=== PATIENT | female | born 1985 | race Caucasian/White ===

== ENCOUNTER 2024-05-25 21:48 | Emergency (ER) | payer OTHER, SELFPAY ==
[2024-05-25 21:50] VITALS: BP 170/98; PULSE 83; RESP 17; TEMP 37.1; O2SAT 98; BMI 23.6
[2024-05-25 23:18] VITALS: BP 141/100
[2024-05-26] MEDS: 0.9% Normal Saline (1000mL) 1,000 ML 1000 ML IV (00:16)
[2024-05-26] MEDS: Ketorolac 15 MG/ML Vial IV (00:16)
--- NOTE | 2024-05-26 00:54 | EDS_ITS ---
HPI History of Present Illness Chief Complaint: Cold Sx Detail of Chief Complaint: Patient with viral-like symptoms started today. Informant: patient Onset/Context/Timing Onset: Today Context: Sudden Onset Timing: Continuous Quality: Headache, nausea vomiting x 2, aches, cough Location: Upper respiratory Current Severity: Mild Maximum Severity: Moderate Worsened by: Nothing Relieved by: Nothing Associated Symptoms Associated Symptoms: Bad bifrontal headache Narrative Narrative: Patient is a 38-year-old woman. She has history of migraine headaches. She started having mild congestion and sore throat cough. She reports bifrontal headache. She does complain of mild light sensitivity. Denies neck pain or neck stiffness. She has vomited twice. She endorses diarrhea. She has been around multiple people who have been ill. She is in the [employer]. Patient denies skin lesions. Patient states her blood pressure was elevated after maneuvers at the [employer]. They have been watching her blood pressure. She states her blood pressure has been 1 40-95. Prior similar symptoms: Yes Recent Illness/Hospitalization: No PFSH PFSH Medical History Migraine Allergy/AdvReac Type Severity Reaction Status Date / Time doxycycline AdvReac Upset Verified 05/25/24 23:19 Stomach ondansetron (From Zofran) AdvReac Upset Verified 05/25/24 21:50 Stomach Family History no significant family his Social History Smoking Status: Never smoker ROS ROS ED Constitutional Constitutional ED: Reports fever(s) and subjective; Denies chills or sweats Eyes Eyes: Denies blurry vision, change in vision or diplopia ENT ENT ED: Reports rhinorrhea and sore throat; Denies ear pain Cardiovascular Cardiovascular: Reports chest pain and other Details: Chest pain with breathing. ; Denies orthopnea, palpitations, paroxysmal nocturnal dyspnea or racing heartbeat Respiratory/Chest Respiratory/Chest: Reports cough and dyspnea; Denies dyspnea on exertion, ortho pnea, paroxysmal nocturnal dyspnea or sputum Gastrointestinal Gastrointestinal: Reports abdominal pain, nausea and vomiting; Denies constipation, diarrhea or melena Genitourinary Genitourinary ED: Denies dysuria, hematuria or urinary frequency Musculoskeletal Musculoskeletal: Denies arthralgias, back pain, myalgias or neck pain Integumentary Denies rash Neurologic Neurologic: Reports headache(s); Denies paresthesias or weakness Endocrine Endocrinology: Denies cold intolerance or heat intolerance Hematologic/Lymphatic Hematologic/Lymphatic: Reports systems reviewed and no addt'l complaints, except as documented EXAM Physical Exam Const Vital Signs: 05/25/24 21:50 05/25/24 23:18 Temperature 98.7 F Temperature Source Oral Pulse Rate 83 Respiratory Rate 17 Blood Pressure 170/98 H 141/100 H Blood Pressure Mean 122 113 Pulse Ox 98 Oxygen Delivery Method Room Air Positive well nourished and well developed General Appearance ED: well developed and pallor; Negative for cyanotic, diaphoretic or NAD HEENT Reports dry mucous membranes Negative for trauma Mouth ED: Yes dry mucous membranes Mouth: dry mucous membranes Eyes PERRL and EOMs intact bilaterally General Eye ED: Negative for pale conjunctiva or scleral icterus Neck no lymphadenopathy, supple and no JVD Chest Wall inspection of chest normal and palpation of chest normal Resp normal respiratory effort and clear to auscultation bilaterally Cardio regular rate, regular rhythm, S1 normal heart sound, S2 normal heart sound and no murmurs GI normal to inspection, nondistended, normoactive bowel sounds, non-tender, non- distended and no masses; Negative for hepatosplenomegaly Back/Spine no CVA tenderness Extremity normal to inspection General Extremety ED: Negative for edema or tenderness General Extremity: Negative for edema Neuro oriented x3, CN's II-XII intact bilaterally and no sensory deficits noted Neuro Narrative: There is no dysmetria. Sensorium / Orientation: alert Motor Exam: strength 5/5 throughout Psych mental status grossly normal Skin no rashes or lesions noted, no wounds and skin turgor normal General Skin Exam: pallor; Negative for elasticity normal or jaundice MDM MDM MDM Narrative Medical decision making narrative: Patient presents with flulike symptoms. 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 If positive she will require week off. To treat her headache Toradol and Zofran was ordered. The Toradol for the headache and Zofran for the nausea vomiting. She states she is allergic to Zofran when she is not allergic. She gets an upset stomach which is not an allergy. Patient insists she has an allergy. The Zofran was discontinued and she was given 5 mg of Reglan. Patient was reassessed at 0120. Her blood pressures improved to 133/95. Her headache is improved. She feels comfortable going home. Discharge Plan Triage Chief Complaint: Cold Sx ED Provider: Star Bray Dx/Rx/DC Orders Clinical Impression: Systemic viral illness, Elevated blood pressure reading with diagnosis of hypertension, Headache, History of migraine headaches Instructions: ED Viral Syndrome (Adult) Primary Care Provider: Yancy Georges,Out of Referrals: Yancy Georges,Out of [Primary Care Provider] - 1 Week if not improving Activity Restrictions/Additional Instructions: 1. You may be sick for another 7 to 10 days. 2. Take either ibuprofen or Tylenol for your aches and pains. 3. Drink plenty of fluids. Print Language: Faroese Disposition Disposition: Home, Self Care
[2024-05-26] MEDS: Metoclopramide 10 MG/2 ML Vial 5 MG IV (00:55)
[2024-05-26 01:49] VITALS: BP 124/81; PULSE 73; RESP 18; TEMP 37.1; O2SAT 98
== END 2024-05-26 01:50 | disposition home or self-care (01) ==
PROVIDERS: Emergency Provider Emergency Medicine; Visit Provider Emergency Medicine
DX: B34.9 Viral infection, unspecified (principal); I10 Essential (primary) hypertension
CPT/HCPCS: 87631; 96361; 96374; 96375; 99284; A4216; J2405

== ENCOUNTER 2024-06-01 19:40 | Emergency (ER) | payer OTHER, SELFPAY ==
[2024-06-01] VITALS (7 sets, daily range): BP systolic 128–169; BP diastolic 89–123; PULSE 52–89; RESP 13–18; TEMP 36.6; O2SAT 95–99; BMI 23.6
--- NOTE | 2024-06-01 19:47 | EKG12_ITS ---
Test Reason : CP/BP Blood Pressure : */* mmHG Vent. Rate : 61 BPM Atrial Rate : 61 BPM P-R Int : 126 ms QRS Dur : 92 ms QT Int : 394 ms P-R-T Axes : 57 -4 13 degrees QTcB Int : 396 ms Normal sinus rhythm Biatrial enlargement Incomplete right bundle branch block Abnormal ECG Confirmed by Antwan Ramos ([id number]), associate editor LILLIAN KAUFMAN ([id number]) on 06/03/2024 8:19:15 AM Referred By: Confirmed By: Antwan Ramos
--- NOTE | 2024-06-01 20:00 | RAD_ITS ---
PROCEDURE: Portable upright chest radiograph, one view REASON FOR EXAM: Chest pain TECHNIQUE: Single portable upright chest radiograph was obtained. COMPARISON: None. FINDINGS: The cardiomediastinal silhouette is within normal limits. Osseous structures are intact. Mild elevation right hemidiaphragm. No pneumothorax, focal airspace consolidation, or pleural effusion. RAD/Chest 1 View (Portable) IMPRESSION: No acute cardiopulmonary process is demonstrated. If there are persistent symp toms or clinical concern, short-term follow-up CT evaluation may be considered. Reading Location: [facility]
[2024-06-01 20:21] LABS: Absolute Lymphocyte Count 3.26 X10^3/uL (0.83-4.51); Absolute Neutrophil Count 5.4 X10^3/uL (2.0-7.7); Basophil# 0.06 X10^3/uL; Basophil% 0.6 % (0-1); Eosinophil# 0.11 X10^3/uL; Eosinophils% 1.1 % (0-5); Hemoglobin 15.7 g/dL (12.0-15.0); Lymphocyte # 3.26 X10^3/ul (0.83-4.51); Lymphocyte % 33.9 % (19-41); Mean Corp Hgb Conc 33.4 g/dL (32-36); Mean Corpuscular Hgb 28.9 pg (27.0-32.0); Mean Corpuscular Volume 86.6 fL (81-99); Mean Platelet Vol. 9.8 fl (6.2-12.0); Monocyte# 0.81 X10^3/uL; Monocyte% 8.4 % (0-10); NRBC Flagged by Analyzer 0 % (0-5); Neutrophil # 5.35 X10^3/uL (2.7-7.7); Neutrophil % 55.7 % (47-70); Platelet Count 344 K/mm3 (150-450); RBC Distribution Width CV 12.6 % (11.6-14.6); RBC Distribution Width SD 39.8 fl (35.1-43.9); Red Blood Count 5.43 M/mm3 (4.2-5.4); White Blood Count 9.6 K/mm3 (4.4-11.0)
[2024-06-01 20:31] LABS: Anion Gap 6 (5-15); BUN 11 mg/dL (7-18); BUN/Creat Ratio 13.1 RATIO (10-20); Calcium,Total 9.6 mg/dL (8.5-10.1); Chloride 104 mmol/L (98-107); Creatinine, Serum 0.84 mg/dL (0.55-1.02); EST Glomerular Filtration Rate 80 mL/min (>60); Est Glom Filt Rate - Afr Amer 97 mL/min (>60); Estimated Creatinine Clearance 80.91 ml/min; Glucose 95 mg/dL (74-106); Potassium 3.8 mmol/L (3.5-5.1); Sodium Level 139 mmol/L (136-145); Troponin-I HS (w/2H Reflex) 3 pg/mL (3.0-54.0)
--- NOTE | 2024-06-01 21:14 | EX.ED.DYSGE1 ---
HPI <JOSE Ho - Last Filed: 06/01/24 22:00> History of Present Illness Chief Complaint: Chest Pain Narrative Narrative: Patient is a 38-year-old female with history of migraine headaches who presents to the [facility] for coughing, shortness of breath intermittent chest pain. Patient was seen here 7 days ago, this was more for a viral-like etiology. Patient is currently doing a lot of physical activity secondary to training for the [employer]. Patient states over the last couple days, she has not been doing well, she states that her blood pressure has been elevated, he is also having some shortness of breath and chest pain whenever she is running. Because the patient symptoms, she needs to be evaluated. <Dr. Nas López DO - Last Filed: 07/01/24 14:08> Narrative Narrative: Patient is a 38-year-old female with history of migraine headaches who presents to the emergency department for coughing, shortness of breath intermittent chest pain. Patient was seen here 7 days ago, this was more for a viral-like etiology. Patient is currently doing a lot of physical activity secondary to training for the [employer]. Patient states over the last couple days, she has not been doing well, she states that her blood pressure has been elevated, he is also having some shortness of breath and chest pain whenever she is running. Because the patient symptoms, she needs to be evaluated. PFS <JOSE Ho - Last Filed: 06/01/24 22:00> [facility] Medical History (Updated 06/09/24 @ 00:01 by Danie Barbosa) Cleft palate Migraine Allergy/AdvReac Type Severity Reaction Status Date / Time doxycycline AdvReac Upset Verified 06/01/24 19:47 Stomach ondansetron (From Zofran) AdvReac Upset Verified 06/01/24 19:47 Stomach Family History no significant family his Social History Smoking Status: Never smoker ROS <JOSE Ho - Last Filed: 06/01/24 22:00> ROS ED ROS Narrative Constitutional: Negative for fever, chills, weight loss, weakness Eyes: Negative for vision loss, vision change, double vision ENT: Negative for any sore throat, ear pain, congestion Cardiovascular: Negative for any chest pain, tightness, palpitations Respiratory: Negative for any sputum production, hemoptysis, orthopnea. Positive for cough, dyspnea, dyspnea on exertion Gastrointestinal: Negative for any abdominal pain, nausea, vomiting, diarrhea, constipation, blood in stool, blood in vomit : Negative for any urinary frequency, dysuria, retention, blood in urine Muscle skeletal: Negative for any neck pain, back pain Neurological: Negative for any headache, syncope, dizziness Skin: Negative for any rashes, itching, abrasions, lacerations Psychiatric: Negative for any depression, anxiety, stress, suicidal ideation, homicidal ideation Hematologic: Negative for any excessive bruising, easy bleeding <Dr. Nas López DO - Last Filed: 07/01/24 14:08> ROS ED ROS Narrative Constitutional: Negative for fever, chills, weight loss, weakness Eyes: Negative for vision loss, vision change, double vision ENT: Negative for any sore throat, ear pain, congestion Cardiovascular: Negative palpitations Respiratory: Negative for any sputum production, hemoptysis, orthopnea. Positive for cough, dyspnea, dyspnea on exertion Gastrointestinal: Negative for any abdominal pain, nausea, vomiting, diarrhea, constipation, blood in stool, blood in vomit : Negative for any urinary frequency, dysuria, retention, blood in urine Muscle skeletal: Negative for any neck pain, back pain Neurological: Negative for any headache, syncope, dizziness Skin: Negative for any rashes, itching, abrasions, lacerations Psychiatric: Negative for any depression, anxiety, stress, suicidal ideation, homicidal ideation Hematologic: Negative for any excessive bruising, easy bleeding EXAM <JOSE Ho - Last Filed: 06/01/24 22:00> Physical Exam Narrative Exam Narrative: Vital signs reviewed. On my examination, patient's blood pressure was 141/101. HEET: Head normocephalic atraumatic, TMs clear bilaterally. Posterior pharynx is clear, moist mucous membranes. Nares clear bilaterally. Neck: Supple with no lymphadenopathy or tenderness. No signs of meningismus. Cardiac: Regular rate and rhythm no murmurs gallops or rubs, equal peripheral pulses bilaterally. Respiratory: Lungs clear to auscultation bilaterally. No chest tenderness. Abdomen: Soft, nontender, nondistended. No abdominal bruit or pulsatile masses. No hepatosplenomegaly Extremities: No peripheral edema, no signs of gross trauma or deformity. Active full range of motion of all extremities. Neuro: Cranial nerves II through XII intact, no focal neurological deficits. Skin: Clean dry and intact with no rash, purpura, petechiae, vesicles or pustules. Backs/flank: No CVA tenderness, no midline spinal tenderness, no deformity. Psych: Normal mood and affect. No SI, HI or acute psychosis. Const Vital Signs: 06/01/24 19:43 06/01/24 19:47 06/01/24 20:23 Temperature 97.9 F Temperature Source Temporal Pulse Rate 89 70 Respiratory Rate 18 13 Respiratory Effort Blood Pressure 156/113 H 160/121 H Blood Pressure Mean 127 134 Pulse Ox 98 97 97 Oxygen Delivery Method Room Air Room Air Room Air 06/01/24 20:23 06/01/24 21:00 06/01/24 22:00 Temperature Temperature Source Pulse Rate 69 64 Respiratory Rate 18 14 Respiratory Effort Normal Blood Pressure 169/123 H 128/92 H Blood Pressure Mean 138 104 Pulse Ox 95 97 Oxygen Delivery Method Room Air Room Air 06/01/24 22:51 06/01/24 23:00 Temperature 97.9 F Temperature Source Pulse Rate 56 L 52 L Respiratory Rate 14 18 Respiratory Effort Blood Pressure 141/89 H Blood Pressure Mean 106 Pulse Ox 96 99 Oxygen Delivery Method Room Air <Dr. Nas López, DO - Last Filed: 07/01/24 14:08> Physical Exam Const Vital Signs: 06/01/24 19:43 06/01/24 19:47 06/01/24 20:23 Temperature 97.9 F Temperature Source Temporal Pulse Rate 89 70 Respiratory Rate 18 13 Respiratory Effort Blood Pressure 156/113 H 160/121 H Blood Pressure Mean 127 134 Pulse Ox 98 97 97 Oxygen Delivery Method Room Air Room Air Room Air 06/01/24 20:23 06/01/24 21:00 06/01/24 22:00 Temperature Temperature Source Pulse Rate 69 64 Respiratory Rate 18 14 Respiratory Effort Normal Blood Pressure 169/123 H 128/92 H Blood Pressure Mean 138 104 Pulse Ox 95 97 Oxygen Delivery Method Room Air Room Air 06/01/24 22:51 06/01/24 23:00 Temperature 97.9 F Temperature Source Pulse Rate 56 L 52 L Respiratory Rate 14 18 Respiratory Effort Blood Pressure 141/89 H Blood Pressure Mean 106 Pulse Ox 96 99 Oxygen Delivery Method Room Air [facility] <Joe Rueda JOSE - Last Filed: 06/01/24 22:00> [facility] Lab Data Labs: Laboratory Results - last 24 hr 06/01/24 06/01/24 20:08 22:23 WBC 9.6 RBC 5.43 H Hgb 15.7 H Hct 47.0 MCV 86.6 MCH 28.9 MCHC 33.4 RDW Std Deviation 39.8 RDW Coeff of Alissa 12.6 Plt Count 344 MPV 9.8 Immature Gran % (Auto) 0.300 Neut % (Auto) 55.7 Lymph % (Auto) 33.9 Ware % (Auto) 8.4 Eos % (Auto) 1.1 Baso % (Auto) 0.6 Absolute Neuts (auto) 5.4 Absolute Lymphs (auto) 3.26 Nucleated RBC % 0 Sodium 139 Potassium 3.8 Chloride 104 Carbon Dioxide 29.0 Anion Gap 6 BUN 11 Creatinine 0.84 Estim Creat Clear Calc 80.91 Est GFR (MDRD) Af Amer 97 Est GFR (MDRD) Non-Af 80 BUN/Creatinine Ratio 13.1 Glucose 95 Calcium 9.6 Troponin I High Sens 3 3 Radiography Diagnostic Testing: Clinical Impression(s) from Imaging Studies Chest X-Ray 06/01/24 20:00 IMPRESSION: No acute cardiopulmonary process is demonstrated. If there are persistent symptoms or clinical concern, short-term follow-up CT evaluation may be considered. Reading Location: [facility] EKG EKG shows normal sinus rhythm: Attestation: I personally reviewed and interpreted this EKG as follows: Interpretation: Sinus Rhythm Comments: Normal sinus rhythm, rate of 61 bpm, [place] 126 ms, QRS duration 82 ms, no acute ST elevation, no acute infarct noted. Treatment and Re-Evaluation :: Differential diagnosis includes however is not limited to: COVID-19, influenza, RSV, ACS, KS, anxiety, essential hypertension Patient appears generally well, vital signs are stable, patient is nontoxic-appearing. Patient's blood pressure on my evaluation was 141/101. Patient does seem to be slightly anxious. Presenting to the emergency department for shortness of breath, intermittent chest pain while doing physical activity for the [employer]. Patient was sick over the last week, and states that thisPatient's chest x-ray showed no acute cardiopulmonary process identified. No infiltrate. Laboratory values showed a normal CBC, chemistries were unremarkable, troponin was 3 which is negative. Patient will have a repeat troponin. Patient's tachycardia troponin was negative. At this time, do not believe there is any evidence to suspect any ACS or KS. Patient will be able to return to physical training with the [employer] with no restrictions. Patient will continue following up outpatient. Patient is agreeable with this plan, she will given a albuterol inhaler. All questions answered, stable for discharge. <Dr. Nas López, DO - Last Filed: 07/01/24 14:08> [facility] Lab Data Labs: Laboratory Results - last 24 hr 06/01/24 06/01/24 20:08 22:23 WBC 9.6 RBC 5.43 H Hgb 15.7 H Hct 47.0 MCV 86.6 MCH 28.9 MCHC 33.4 RDW Std Deviation 39.8 RDW Coeff of Alissa 12.6 Plt Count 344 MPV 9.8 Immature Gran % (Auto) 0.300 Neut % (Auto) 55.7 Lymph % (Auto) 33.9 Ware % (Auto) 8.4 Eos % (Auto) 1.1 Baso % (Auto) 0.6 Absolute Neuts (auto) 5.4 Absolute Lymphs (auto) 3.26 Nucleated RBC % 0 Sodium 139 Potassium 3.8 Chloride 104 Carbon Dioxide 29.0 Anion Gap 6 BUN 11 Creatinine 0.84 Estim Creat Clear Calc 80.91 Est GFR (MDRD) Af Amer 97 Est GFR (MDRD) Non-Af 80 BUN/Creatinine Ratio 13.1 Glucose 95 Calcium 9.6 Troponin I High Sens 3 3 Radiography Chest X-Ray - ED: Read by ED Physician Diagnostic Testing: Clinical Impression(s) from Imaging Studies Chest X-Ray 06/01/24 20:00 IMPRESSION: No acute cardiopulmonary process is demonstrated. If there are persistent symptoms or clinical concern, short-term follow-up CT evaluation may be considered. Reading [facility] I have personally reviewed the patient's chest x-ray. Chest x-ray is unremarkable for pulmonary edema, pneumothorax, pneumonia or focal cardiopulmonary abnormality. Treatment and Re-Evaluation :: Differential diagnosis includes however is not limited to: COVID-19, influenza, RSV, ACS, KS, anxiety, essential hypertension Patient appears generally well, vital signs are stable, patient is nontoxic-appearing. Patient's blood pressure on my evaluation was 141/101. Patient does seem to be slightly anxious. Presenting to the emergency department for shortness of breath, intermittent chest pain while doing physical activity for the [employer]. Patient was sick over the last week, and states that thisPatient's chest x-ray showed no acute cardiopulmonary process identified. No infiltrate. Laboratory values showed a normal CBC, chemistries were unremarkable, troponin was 3 which is negative. Patient will have a repeat troponin. Patient's tachycardia troponin was negative. At this time, do not believe there is any evidence to suspect any ACS or KS. Patient will be able to return to physical training with the [employer] with no restrictions. Patient will continue following up outpatient. Patient is agreeable with this plan, she will given a albuterol inhaler. All questions answered, stable for discharge. ED attending note: I evaluated the patient in conjunction with the TIEN. I agree with his/her statements and above findings. I have personally performed a face to face assessment of the patient and have reviewed the TIEN Note. I performed a substantive portion of the visit including all aspects of the following. I personally saw the patient performed chart review, physical exam, reviewed labs, imaging (if obtained), and formulated a treatment and management plan. History as above. The patient denies recent surgery in the last 4 weeks or immobilization in the last 3 days, denies previous diagnosis of DVT or PE, hemoptysis, unilateral leg swelling or malignancy with treatment the last 6 months or palliative. Positive estrogen use. Patient denies sudden onset of pain, no tearing sensation, no migratory symptoms, no new numbness, weakness or loss of sensation. Patient denies family history or personal history of Connective tissue disorders (Marfan's Syndrome, Ajit Danlos etc). Exam: No focal neurologic deficits, no focal cardiopulmonary abnormality. No stigmata of VTE or dissection on exam. MDM/plan. Will perform high-sensitivity troponin rule out protocol. I considered PE and or dissection however the patient's history and physical exam not consistent with PE or aortic dissection. I have personally reviewed the patient's chest x-ray. Chest x-ray is unremarkable for pulmonary edema, pneumothorax, pneumonia or focal cardiopulmonary abnormality. Labs otherwise unremarkable. Troponins are negative x2. He is appropriate for discharge home. No clear life-limiting etiology can be ascertained. This note was generated with [employer] dictation software. It may contain incorrect words, spelling, and punctuation that were not noted in review of the chart prior to signing. Discharge Plan Triage Chief Complaint: Chest Pain ED Midlevel Provider: Joe Rueda ED Provider: Nas López Dx/Rx/DC Orders Clinical Impression: Chest pain, Hypertension Instructions: Blood Pressure Check Steps, ED Hypertension, To Be Confirmed Primary Care Provider: Care Physician,No Primary Referrals: [facility] Doctor,Out of [Non-Staff] - Activity Restrictions/Additional Instructions: You had a negative cardiac workup. Today, you need to follow-up with your primary care provider. You are able to return to physical activity with no restrictions Print Language: Surinamese Disposition Disposition: Home, Self Care Discharge Date/Time: 06/01/24 23:07
[2024-06-01 22:10] LABS: Reflex Troponin-HS? (from REC) Y
[2024-06-01 22:48] LABS: Troponin-I HS 3 pg/mL (3.0-54.0)
== END 2024-06-01 23:07 | disposition home or self-care (01) ==
PROVIDERS: Emergency Provider Emergency Medicine; Visit Provider Emergency Medicine
DX: R07.9 Chest pain, unspecified (principal); I10 Essential (primary) hypertension
CPT/HCPCS: 71045; 80048; 84484; 85025; 93005; 99283; A4216